=== PATIENT | female | born 1995 | race Hispanic/Latino ===

== ENCOUNTER 2024-04-29 13:45 | Outpatient (RCR) | payer OTHER, SELFPAY ==
--- NOTE | 2024-03-05 14:26 | PT.OIE ---
Current Diagnoses Stress incontinence (female) (male) (03/05/24) Visit Care Team Role Provider Type Heber Gold MD Attending Provider Non-Staff Family Provider Primary Care Provider Referring Provider Specialty: Medical Address: [address], [address] Email: Physical Therapy Initial Evaluation PT-OP-A Visit Information Start: 03/01/24 07:48 Freq: Status: Active Protocol: Document 03/05/24 13:03 LRN (Rec: 03/05/24 14:24 LRN [id number]) Out-Patient Physical Therapy Visit Information Visit Information Visit Type Initial Evaluation Visit Start Time 13:03 Visit Stop Time 13:44 Visit Number 1 Evaluation Information Evaluation Date 03/05/24 Precautions Precautions None PT-OP-B Current Condition Start: 03/01/24 07:48 Freq: Status: Active Protocol: Document 03/05/24 13:03 LRN (Rec: 03/05/24 14:24 LRN [id number]) Current Condition History of Current Condition Onset Date Oct 2023 Current Complaints Urinary leakage with menstration only at night. History of Current Condition Pt reports sudden onset of waking to urine wetness in underwear in bed, when menstrating (wears menstrual cup). Denies urinary leakage during the daytime. Happened once when not menstrating, 3x when menstrating. Pt reports having no urge to urinate when leaking. Pt hesitant for PF assessment due to being on period. Prior Treatments and Tests Urine check - no infection. Treatment Goals Patient/Caregiver Goals Pt goals: Strengthen the PF to stop urinary leakage in bed. 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 Doesn't feel urge to urinate before leakage. Voiding Frequency 15-17x day Nocturia 2 Comments Pelvic Floor Comments Per questionnaire, pt notes occasional pain or symptoms during sexual intercourse; and moderate pain associated to the bladder. PT-OP-J Posture/Palpation/Skin Start: 03/01/24 07:48 Freq: Status: Active Protocol: Document 03/05/24 13:03 LRN (Rec: 03/05/24 14:24 LRN [id number]) Posture Evaluation Position Standing Arm Posture (L) Neutral Pelvis Posture Anteriorly Tilted Weight Distribution Weight Shifted Left Hip Posture (L) Neutral,(R) Neutral Comments Posture Comments Decreased thoracic curvature. PT-OP-K Range of Motion Start: 03/01/24 07:48 Freq: Status: Active Protocol: Document 03/05/24 13:03 LRN (Rec: 03/05/24 14:24 LRN [id number]) Lumbar Spine Range of Motion Lumbar Spine Active Degrees Testing Position Standing Flexion 80 Extension 10 Rotation Left 20 Rotation Right 30 Lateral Flexion Left 8 Lateral Flexion Right 10 ROM Limitations Soft Tissue Tightness Hip Goniometric Range of Motion Hip Right Passive Testing Position Supine Abduction 40 Internal Rotation 40 External Rotation 40 Left Passive Testing Position Supine Abduction 40 Internal Rotation 35 External Rotation 40 PT-OP-M Strength Start: 03/01/24 07:48 Freq: Status: Active Protocol: Document 03/05/24 13:03 LRN (Rec: 03/05/24 14:24 LRN [id number]) Trunk Strength Trunk Manual Muscle Testing Core Stabilization Mild core instability during MMT of LE's, primarily with rotation. Hip Strength Hip Manual Muscle Testing Right Flexion (L2) 4+ Good+ Extension (S1) 3 Fair Abduction 4+ Good+ Adduction 4- Good- External Rotation 3 Fair Internal Rotation 4+ Good+ Comments Hip strength is 5/5 except as indicated above. Left Flexion (L2) 4+ Good+ Extension (S1) 3 Fair Abduction 4 Good Adduction 4 Good External Rotation 3 Fair Internal Rotation 3+ Fair+ Comments Hip strength is 5/5 except as indicated above. PT-OP-Q Treatments Start: 03/01/24 07:48 Freq: Status: Active Protocol: Document 03/05/24 13:03 LRN (Rec: 03/05/24 14:24 LRN [id number]) Therapeutic Exercises Supine Exercises Deep Breathing Reps/Minutes 2' Comments Pt cued to move at lower ribs/ abdomen and keep chest still. Self-Care/Home Management Treatment Education Other Education Discussed results of evaluation, goals, treatments, and plan of care (POC) with pt, discussed attendance/cx/ dns policy; pt agreeable to goals, attendance/cx/dns policy and POC. Activities Self-Care/Home Management Activities Issued & reviewed HEP: Kegel ex's and discussed exercise of Quick Flicks, Long Holds and Aggravators. Issued handout for deep breathing. PT-OP-T Assessment and Plan Start: 03/01/24 07:48 Freq: Status: Active Protocol: Document 03/05/24 13:03 LRN (Rec: 03/05/24 14:24 LRN [id number]) Physical Therapy Assessment Rehab Potential Rehabilitation Potential Good Evaluation Complexity Number of Personal Factors/Comorbidities 0 Number of Body Systems Impaired 1-2 Clinical Presentation at Evaluation Evolving Impairments Impairments ROM,Strength Goals Two Impairment Urinary incontinence Impairment Urinary leakage while in bed, noted first in the morning. Short Term Goal (STG) Pt will be educated in proper deep breathing to minimize urge for urination first in the morning. STG Duration 3 wks-03/26/24 Usp Goal (LTG) Pt will strengthen the PF to stop urinary leakage in bed. LTG Duration 12 wks-05/31/24 One Impairment Pt lacks an independent self care HEP. Short Term Goal (STG) Pt will be independent in hip/ trunk mobility ex's (hip ER/ LIR/hamstrings) to improve symmetry of mobility and core pressure management to reduce urinary leakage. STG Duration 4 wks-04/02/24 Usp Goal (LTG) Pt will be independent in a self care HEP for PF strengthening. LTG Duration 12 wks-05/31/24 Assessment Summary Assessment Pt is a 28 yo female who presents with c/o urinary leakage occuring during menstration while in bed, first in the morning, denying urinary leakage during the day . She also presents with stiffness of the trunk and hips and not able to perform a proper deep breath. The pt will benefit from skilled physical therapy for PF/hip strengthening and flexibility ex's to achieve the above stated goals. I am expecting to be gone for a portion of time this summer; therefore extension of her POC timeframe might be needed. Physical Therapy Plan Frequency and Duration Frequency of Treatment 1x/Week Duration of treatment (weeks) 12 Plan of Care Start Date 03/05/24 Plan of Care End Date 05/31/24 Therapeutic Interventions Therapeutic Interventions Home Exercise Program,Manual Therapy,Neuromuscular Re- education,Self-Care/Home Management,Soft Tissue Mobilization,Therapeutic Exercises Modalities Biofeedback Next Visit Focus/Plan Next Note Type Treatment Note Next Visit Plan Next: Assessment PF if pt off period, and for bowel involvement. ?Bladder diary. Review proper Kegel without use of substitute muscles, reduction of intra-abdominal pressure, proper deep breathing, and proper breathing with transfers and body mechanics. Ther Ex: PF/core/hip strengthening, improve hip Ext /ER/hamstrings and trunk extension/flexion mobility. PLAN: POC: Pt education, Manual therapy. Biofeedback with vaginal sensor. Therapeutic Exercises, Therapeutic Activities, Neuromuscular Reeducation.
--- NOTE | 2024-03-05 14:27 | PT.OPPOC ---
Physical, Occupational & Speech Therapy At [facility] Current Diagnoses Stress incontinence (female) (male) (03/05/24) Visit Care Team Role Provider Type Heber Gold MD Attending Provider Non-Staff Family Provider Primary Care Provider Referring Provider Specialty: Medical Address: [facility], [address] [place] [address], [id number] Email: Plan Of Care PT-OP-T Assessment and Plan Start: 03/01/24 07:48 Freq: Status: Active Protocol: Document 03/05/24 13:03 LRN (Rec: 03/05/24 14:24 LRN [id number]) Physical Therapy Assessment Rehab Potential Rehabilitation Potential Good Evaluation Complexity Number of Personal Factors/Comorbidities 0 Number of Body Systems Impaired 1-2 Clinical Presentation at Evaluation Evolving Impairments Impairments ROM,Strength Goals Two Impairment Urinary incontinence Impairment Urinary leakage while in bed, noted first in the morning. Short Term Goal (STG) Pt will be educated in proper deep breathing to minimize urge for urination first in the morning. STG Duration 3 wks-03/26/24 Mainframe Programmer Analyst Goal (LTG) Pt will strengthen the PF to stop urinary leakage in bed. LTG Duration 12 wks-05/31/24 One Impairment Pt lacks an independent self care HEP. Short Term Goal (STG) Pt will be independent in hip/ trunk mobility ex's (hip ER/ LIR/hamstrings) to improve symmetry of mobility and core pressure management to reduce urinary leakage. STG Duration 4 wks-04/02/24 Mainframe Programmer Analyst Goal (LTG) Pt will be independent in a self care HEP for PF strengthening. LTG Duration 12 wks-05/31/24 Assessment Summary Assessment Pt is a 28 yo female who presents with c/o urinary leakage occuring during menstration while in bed, first in the morning, denying urinary leakage during the day . She also presents with stiffness of the trunk and hips and not able to perform a proper deep breath. The pt will benefit from skilled physical therapy for PF/hip strengthening and flexibility ex's to achieve the above stated goals. I am expecting to be gone for a portion of time this summer; therefore extension of her POC timeframe might be needed. Physical Therapy Plan Frequency and Duration Frequency of Treatment 1x/Week Duration of treatment (weeks) 12 Plan of Care Start Date 03/05/24 Plan of Care End Date 05/31/24 Therapeutic Interventions Therapeutic Interventions Home Exercise Program,Manual Therapy,Neuromuscular Re- education,Self-Care/Home Management,Soft Tissue Mobilization,Therapeutic Exercises Modalities Biofeedback Next Visit Focus/Plan Next Note Type Treatment Note Next Visit Plan Next: Assessment PF if pt off period, and for bowel involvement. ?Bladder diary. Review proper Kegel without use of substitute muscles, reduction of intra-abdominal pressure, proper deep breathing, and proper breathing with transfers and body mechanics. Ther Ex: PF/core/hip strengthening, improve hip Ext /ER/hamstrings and trunk extension/flexion mobility. PLAN: POC: Pt education, Manual therapy. Biofeedback with vaginal sensor. Therapeutic Exercises, Therapeutic Activities, Neuromuscular Reeducation. Plan of Care Dates Plan of Care Start Date 03/05/24 Plan of Care End Date 05/31/24 Electronically Signed by: Sara Green, PT 03/05/24 [id number] If you are in agreement with this Plan of Care, please return a signed and dated copy. I have reviewed this Plan of Care and certify that the skilled therapy services above are required to meet the patient?s needs. Physician Signature Date Printed Name and Credentials Clinical Instructor Signature Printed Name and Credentials
--- NOTE | 2024-03-11 15:50 | PT.OTN ---
Current Diagnoses Stress incontinence (female) (male) (03/11/24) Physical Therapy Treatment Note PT-OP-A Visit Information Start: 03/01/24 07:48 Freq: Status: Active Protocol: Document 03/11/24 14:33 LRN (Rec: 03/11/24 15:45 LRN [id number]) Out-Patient Physical Therapy Visit Information Visit Information Visit Type Treatment Note Visit Start Time 14:33 Visit Stop Time 15:21 Visit Number 2 Evaluation Information Evaluation Date 03/05/24 Precautions Precautions None. No bowel involvement. PT-OP-B Current Condition Start: 03/01/24 07:48 Freq: Status: Active Protocol: Document 03/05/24 13:03 LRN (Rec: 03/05/24 14:24 LRN [id number]) Current Condition History of Current Condition Onset Date Oct 2023 Current Complaints Urinary leakage with menstration only at night. History of Current Condition Pt reports sudden onset of waking to urine wetness in underwear in bed, when menstrating (wears menstrual cup). Denies urinary leakage during the daytime. Happened once when not menstrating, 3x when menstrating. Pt reports having no urge to urinate when leaking. Pt hesitant for PF assessment due to being on period. Prior Treatments and Tests Urine check - no infection. Treatment Goals Patient/Caregiver Goals Pt goals: Strengthen the PF to stop urinary leakage in bed. 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 Started doing abdominal ex 5 months ago but leakage started 1 month ago. PT-OP-I Pelvic Floor Start: 03/01/24 07:48 Freq: Status: Active Protocol: Document 03/11/24 14:33 LRN (Rec: 03/11/24 15:45 LRN [id number]) Pelvic Floor Assessment Bowel Bowel Movement Frequency Daily [place] Stool Chart Comments BM's type 4-5. Pelvic Clock Pelvic Clock Other Tighter on R side and feeling PF contraction. Prolapse Uterine Prolapse Grade 1 Contraction Ability Voluntary Contraction Weak Manual Muscle Testing Left 0 Manual Muscle Testing Right 1 Manual Muscle Testing Anterior 0 Manual Muscle Testing Posterior 0 Muscle Endurance (Seconds) 3 Number of Quick Contractions In 10 2 Seconds Comments Pelvic Floor Comments Pt gave verbal consent for manual assessment & treatment (George, palpating strength of contraction). Pt PF moderately dry. PT-OP-J Posture/Palpation/Skin Start: 03/01/24 07:48 Freq: Status: Active Protocol: Document 03/05/24 13:03 LRN (Rec: 03/05/24 14:24 LRN [id number]) Posture Evaluation Position Standing Arm Posture (L) Neutral Pelvis Posture Anteriorly Tilted Weight Distribution Weight Shifted Left Hip Posture (L) Neutral,(R) Neutral Comments Posture Comments Decreased thoracic curvature. PT-OP-K Range of Motion Start: 03/01/24 07:48 Freq: Status: Active Protocol: Document 03/05/24 13:03 LRN (Rec: 03/05/24 14:24 LRN [id number]) Lumbar Spine Range of Motion Lumbar Spine Active Degrees Testing Position Standing Flexion 80 Extension 10 Rotation Left 20 Rotation Right 30 Lateral Flexion Left 8 Lateral Flexion Right 10 ROM Limitations Soft Tissue Tightness Hip Goniometric Range of Motion Hip Right Passive Testing Position Supine Abduction 40 Internal Rotation 40 External Rotation 40 Left Passive Testing Position Supine Abduction 40 Internal Rotation 35 External Rotation 40 PT-OP-M Strength Start: 03/01/24 07:48 Freq: Status: Active Protocol: Document 03/05/24 13:03 LRN (Rec: 03/05/24 14:24 LRN [id number]) Trunk Strength Trunk Manual Muscle Testing Core Stabilization Mild core instability during MMT of LE's, primarily with rotation. Hip Strength Hip Manual Muscle Testing Right Flexion (L2) 4+ Good+ Extension (S1) 3 Fair Abduction 4+ Good+ Adduction 4- Good- External Rotation 3 Fair Internal Rotation 4+ Good+ Comments Hip strength is 5/5 except as indicated above. Left Flexion (L2) 4+ Good+ Extension (S1) 3 Fair Abduction 4 Good Adduction 4 Good External Rotation 3 Fair Internal Rotation 3+ Fair+ Comments Hip strength is 5/5 except as indicated above. PT-OP-Q Treatments Start: 03/01/24 07:48 Freq: Status: Active Protocol: Document 03/11/24 14:33 LRN (Rec: 03/11/24 15:45 LRN [id number]) Therapeutic Exercises Supine Exercises Hip IR/AD strengthening Supine Exercise Name BKFI w/exhale Reps/Minutes 10 x L, 10x Quentin Hip ER stretch Supine Exercise Name Butterfly position stretch Side left Reps/Minutes 3' Long Hold Kegels Reps/Minutes 12' Quick Kegels Reps/Minutes 8' Deep Breathing Supine Exercise Name Hand on chest and upper ribs Reps/Minutes 8' Comments Cued to slow breathin in / faster initial out. Neuro Re-Education Treatment Movement Re-Education Movement Re-education Activities Coordination training of breath with transfers (sidelie <>sit<>stand). Self-Care/Home Management Treatment Education Patient Education Home Exercise Program Other Education After review of the pt's core strengthening program, discussion was had for breathwork during exercises and recommended pt hold on core strengthening or V-sit leg flex/ext & L-sits from forearm supports and substitute ex's will be issued . Activities Self-Care/Home Management Activities Issued & reviewed HEP: Hip ER /AB stretch (BKFO position), & strengthening for active hip ER/AB. PT-OP-T Assessment and Plan Start: 03/01/24 07:48 Freq: Status: Active Protocol: Document 03/11/24 14:33 LRN (Rec: 03/11/24 15:45 LRN [id number]) Physical Therapy Assessment Goals Two Impairment Urinary incontinence Impairment Urinary leakage while in bed, noted first in the morning. Short Term Goal (STG) Pt will be educated in proper deep breathing to minimize urge for urination first in the morning. 03/11/24: Pt educated in proper Deep breathing. STG Duration 3 wks-03/26/24 progressing (need minimize urge) Halfway Goal (LTG) Pt will strengthen the PF to stop urinary leakage in bed. LTG Duration 12 wks-05/31/24 One Impairment Pt lacks an independent self care HEP. Short Term Goal (STG) Pt will be independent in hip/ trunk mobility ex's (hip ER/ LIR/hamstrings) to improve symmetry of mobility and core pressure management to reduce urinary leakage. 03/11/24: HEP: L Hip ER stretch and Quentin hip ER/AD ( BKFO position) strengthening ( L>R). STG Duration 4 wks-04/02/24 progressing 03/11/24 Halfway Goal (LTG) Pt will be independent in a self care HEP for PF strengthening. 03/05/24 (late entry): HEP: Kegel ex's and discussed exercise of Quick Flicks, Long Holds and Aggravators LTG Duration 12 wks-05/31/24 progressed 03/05/24 (late entry) Assessment Summary Assessment Pt is a 28 yo female who presents with c/o urinary leakage occuring during menstration while in bed, first in the morning, denying leakage daytime; PF is very weak (lateral wall L worse than R) & urterine drop is present. Today, she was trained in deep breathing and was able to perform properly with much education and v. cuing. Transfer with proper breath after training and v. cuing. Vaginal tissues are dry, pt washing with soaps. Physical Therapy Plan Frequency and Duration Frequency of Treatment 1x/Week Duration of treatment (weeks) 12 Plan of Care Start Date 03/05/24 Plan of Care End Date 05/31/24 Next Visit Focus/Plan Next Note Type Treatment Note Next Visit Plan Next: Vemg biofeedback for PF strength. Review Bladder diary for fluid management/ nighttime leakage, review & issue handout for reduction of intra-abdominal pressure with proper deep breathing (check for cystocele/rectocele & uterine drop with valsa maneuver/cough), and proper breathing with transfers and body mechanics. Teach/Review proper Kegel without use of substitute muscles. Ther Ex: PF/core/hip strengthening, improve hip Ext /ER/hamstrings and trunk extension/flexion mobility. PLAN: POC: Pt education, Manual therapy. Biofeedback with vaginal sensor. Therapeutic Exercises, Therapeutic Activities, Neuromuscular Reeducation.
--- NOTE | 2024-03-18 16:24 | PT.OTN ---
Current Diagnoses Stress incontinence (female) (male) (03/18/24) Physical Therapy Treatment Note PT-OP-A Visit Information Start: 03/01/24 07:48 Freq: Status: Active Protocol: Document 03/18/24 13:46 LRN (Rec: 03/18/24 14:32 LRN [id number]) Out-Patient Physical Therapy Visit Information Visit Information Visit Type Treatment Note Visit Start Time 13:46 Visit Stop Time 14:24 Visit Number 315 Evaluation Information Evaluation Date 03/05/24 Precautions Precautions None. No bowel involvement. PT-OP-B Current Condition Start: 03/01/24 07:48 Freq: Status: Active Protocol: Document 03/05/24 13:03 LRN (Rec: 03/05/24 14:24 LRN [id number]) Current Condition History of Current Condition Onset Date Oct 2023 Current Complaints Urinary leakage with menstration only at night. History of Current Condition Pt reports sudden onset of waking to urine wetness in underwear in bed, when menstrating (wears menstrual cup). Denies urinary leakage during the daytime. Happened once when not menstrating, 3x when menstrating. Pt reports having no urge to urinate when leaking. Pt hesitant for PF assessment due to being on period. Prior Treatments and Tests Urine check - no infection. Treatment Goals Patient/Caregiver Goals Pt goals: Strengthen the PF to stop urinary leakage in bed. 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 PT-OP-I Pelvic Floor Start: 03/01/24 07:48 Freq: Status: Active Protocol: Document 03/18/24 13:46 LRN (Rec: 03/18/24 14:32 LRN [id number]) Pelvic Floor Assessment SEMG (uV) Baseline 0.1 Quick Contraction 2.2 10 Second Contraction 3.7 Recruitment Pattern Good Relaxation Fair Holding Poor/Slow Stability of Hold Poor/Slow SEMG Stability of Rest Good Comments Pelvic Floor Comments Legs on Bolster Kegel NOT in isolation of substitute muscles. Positioning: Hands on mid abdomen. 10 reps strength (uV's): avg work 2.2, avg rest 1.0. 20 reps strength (uV's): avg work 2.2, avg rest 1.3. Long Holds: 10 reps strength (uV's): avg work 3.7, avg rest 0.8. PT-OP-J Posture/Palpation/Skin Start: 03/01/24 07:48 Freq: Status: Active Protocol: Document 03/05/24 13:03 LRN (Rec: 03/05/24 14:24 LRN [id number]) Posture Evaluation Position Standing Arm Posture (L) Neutral Pelvis Posture Anteriorly Tilted Weight Distribution Weight Shifted Left Hip Posture (L) Neutral,(R) Neutral Comments Posture Comments Decreased thoracic curvature. PT-OP-K Range of Motion Start: 03/01/24 07:48 Freq: Status: Active Protocol: Document 03/05/24 13:03 LRN (Rec: 03/05/24 14:24 LRN [id number]) Lumbar Spine Range of Motion Lumbar Spine Active Degrees Testing Position Standing Flexion 80 Extension 10 Rotation Left 20 Rotation Right 30 Lateral Flexion Left 8 Lateral Flexion Right 10 ROM Limitations Soft Tissue Tightness Hip Goniometric Range of Motion Hip Right Passive Testing Position Supine Abduction 40 Internal Rotation 40 External Rotation 40 Left Passive Testing Position Supine Abduction 40 Internal Rotation 35 External Rotation 40 PT-OP-M Strength Start: 03/01/24 07:48 Freq: Status: Active Protocol: Document 03/05/24 13:03 LRN (Rec: 03/05/24 14:24 LRN [id number]) Trunk Strength Trunk Manual Muscle Testing Core Stabilization Mild core instability during MMT of LE's, primarily with rotation. Hip Strength Hip Manual Muscle Testing Right Flexion (L2) 4+ Good+ Extension (S1) 3 Fair Abduction 4+ Good+ Adduction 4- Good- External Rotation 3 Fair Internal Rotation 4+ Good+ Comments Hip strength is 5/5 except as indicated above. Left Flexion (L2) 4+ Good+ Extension (S1) 3 Fair Abduction 4 Good Adduction 4 Good External Rotation 3 Fair Internal Rotation 3+ Fair+ Comments Hip strength is 5/5 except as indicated above. PT-OP-Q Treatments Start: 03/01/24 07:48 Freq: Status: Active Protocol: Document 03/18/24 13:46 LRN (Rec: 03/18/24 14:32 LRN [id number]) Therapeutic Exercises Supine Exercises Resting Supine Exercise Name Resting tone per Vemg Reps/Minutes 5' Comments Extra time to don Vaginal electrode Long Hold Kegels Supine Exercise Name Long Hold Vemg Kegels Reps/Minutes 10 SH, 20 SR x 10 Comments Extra time for training of ex' s with Vemg (timing, ect..). Quick Kegels Supine Exercise Name Quick Vemg Kegels Reps/Minutes 2 SH, 4 SR x 20 Comments Extra time for training of ex' s with Vemg (timing, ect..). Self-Care/Home Management Treatment Education Other Education Reviewed Bladder dairy and discussed fluid intake norms and again with exercise sweating, and nighttime voiding frequency norm. Discussed times between voids as every 2 hrs, can be normal. Discussed pt's feeling of being thirsty and recommended bloodwork for blood sugar levels, but pt reported her last bloodwork was 12/2023 and was normal. PT-OP-T Assessment and Plan Start: 03/01/24 07:48 Freq: Status: Active Protocol: Document 03/18/24 13:46 LRN (Rec: 03/18/24 14:32 LRN [id number]) Physical Therapy Assessment Goals Two Impairment Urinary incontinence Impairment Urinary leakage while in bed, noted first in the morning. Short Term Goal (STG) Pt will be educated in proper deep breathing to minimize urge for urination first in the morning. 03/11/24: Pt educated in proper Deep breathing. STG Duration 3 wks-03/26/24 progressing (need minimize urge) Fdc Goal (LTG) Pt will strengthen the PF to stop urinary leakage in bed. 03/18/24: No leaking this past week. LTG Duration 12 wks-05/31/24 progressed? 03/18/24 One Impairment Pt lacks an independent self care HEP. Short Term Goal (STG) Pt will be independent in hip/ trunk mobility ex's (hip ER/ LIR/hamstrings) to improve symmetry of mobility and core pressure management to reduce urinary leakage. 03/11/24: HEP: L Hip ER stretch and Quentin hip ER/AD ( BKFO position) strengthening ( L>R). STG Duration 4 wks-04/02/24 progressing 03/11/24 Net Software Engineer Goal (LTG) Pt will be independent in a self care HEP for PF strengthening. 03/05/24 (late entry): HEP: Kegel ex's and discussed exercise of Quick Flicks, Long Holds and Aggravators LTG Duration 12 wks-05/31/24 progressed 03/05/24 (late entry) Assessment Summary Assessment Pt is a 28 yo female who presents with c/o urinary leakage occuring during menstration while in bed, first in the morning, denying leakage daytime; PF is very weak (lateral wall L worse than R) & uterine drop. Today , per Vemg assesssment, resting tone is very low, weakness is present with quick flicks & long hold Kegels. Pt is drinking over her avg fluid amout of water (pt drinking 150-160 oz's per body wgt of 141#). Pt noting thirst feeling prompting her to drink, allowing for over norm of fluid intake. Physical Therapy Plan Frequency and Duration Frequency of Treatment 1x/Week Duration of treatment (weeks) 12 Plan of Care Start Date 03/05/24 Plan of Care End Date 05/31/24 Other Referrals/Consults Referrals/Consults Recommended Consult for pt high fluid intake at prompting of being thirsty. Next Visit Focus/Plan Next Note Type Treatment Note Next Visit Plan Next: Check wgt. Teach/ Review proper Kegel without use of substitute muscles. Vemg biofeedback for PF strength quick & long holds ( weak lateral wall L worse than R). Review Deep Breathing mechanics, & Bladder diary discussion, & issue handout for reduction of intra- abdominal pressure with proper deep breathing (check for cystocele/rectocele & uterine drop with valsa maneuver/cough ), and proper breathing with transfers and body mechanics. Ther Ex: PF/core/hip strengthening, improve hip Ext /ER/hamstrings and trunk extension/flexion mobility. PLAN: POC: Pt education, Manual therapy. Biofeedback with vaginal sensor. Therapeutic Exercises, Therapeutic Activities, Neuromuscular Reeducation.
--- NOTE | 2024-03-25 14:42 | PT.OTN ---
Current Diagnoses Stress incontinence (female) (male) (03/25/24) Physical Therapy Treatment Note PT-OP-A Visit Information Start: 03/01/24 07:48 Freq: Status: Active Protocol: Document 03/25/24 13:46 LRN (Rec: 03/25/24 14:41 LRN [id number]) Out-Patient Physical Therapy Visit Information Visit Information Visit Type Treatment Note Visit Note wgt 139# Visit Start Time 13:46 Visit Stop Time 14:28 Visit Number 12/24 Evaluation Information Evaluation Date 03/05/24 Precautions Precautions None. No bowel involvement. PT-OP-B Current Condition Start: 03/01/24 07:48 Freq: Status: Active Protocol: Document 03/05/24 13:03 LRN (Rec: 03/05/24 14:24 LRN [id number]) Current Condition History of Current Condition Onset Date Oct 2023 Current Complaints Urinary leakage with menstration only at night. History of Current Condition Pt reports sudden onset of waking to urine wetness in underwear in bed, when menstrating (wears menstrual cup). Denies urinary leakage during the daytime. Happened once when not menstrating, 3x when menstrating. Pt reports having no urge to urinate when leaking. Pt hesitant for PF assessment due to being on period. Prior Treatments and Tests Urine check - no infection. Treatment Goals Patient/Caregiver Goals Pt goals: Strengthen the PF to stop urinary leakage in bed. 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 States she spoke to her corpman who said based on her activity level her amount of fluid intake was normal. PT-OP-I Pelvic Floor Start: 03/01/24 07:48 Freq: Status: Active Protocol: Document 03/25/24 13:46 LRN (Rec: 03/25/24 14:41 LRN [id number]) Pelvic Floor Assessment Comments Pelvic Floor Comments Using Bhavin Protocol 0.1-5 range: 20 reps: Avg work 2.8 , Avg rest 0.9 mV's. PT-OP-J Posture/Palpation/Skin Start: 03/01/24 07:48 Freq: Status: Active Protocol: Document 03/05/24 13:03 LRN (Rec: 03/05/24 14:24 LRN [id number]) Posture Evaluation Position Standing Arm Posture (L) Neutral Pelvis Posture Anteriorly Tilted Weight Distribution Weight Shifted Left Hip Posture (L) Neutral,(R) Neutral Comments Posture Comments Decreased thoracic curvature. PT-OP-K Range of Motion Start: 03/01/24 07:48 Freq: Status: Active Protocol: Document 03/05/24 13:03 LRN (Rec: 03/05/24 14:24 LRN [id number]) Lumbar Spine Range of Motion Lumbar Spine Active Degrees Testing Position Standing Flexion 80 Extension 10 Rotation Left 20 Rotation Right 30 Lateral Flexion Left 8 Lateral Flexion Right 10 ROM Limitations Soft Tissue Tightness Hip Goniometric Range of Motion Hip Right Passive Testing Position Supine Abduction 40 Internal Rotation 40 External Rotation 40 Left Passive Testing Position Supine Abduction 40 Internal Rotation 35 External Rotation 40 PT-OP-M Strength Start: 03/01/24 07:48 Freq: Status: Active Protocol: Document 03/05/24 13:03 LRN (Rec: 03/05/24 14:24 LRN [id number]) Trunk Strength Trunk Manual Muscle Testing Core Stabilization Mild core instability during MMT of LE's, primarily with rotation. Hip Strength Hip Manual Muscle Testing Right Flexion (L2) 4+ Good+ Extension (S1) 3 Fair Abduction 4+ Good+ Adduction 4- Good- External Rotation 3 Fair Internal Rotation 4+ Good+ Comments Hip strength is 5/5 except as indicated above. Left Flexion (L2) 4+ Good+ Extension (S1) 3 Fair Abduction 4 Good Adduction 4 Good External Rotation 3 Fair Internal Rotation 3+ Fair+ Comments Hip strength is 5/5 except as indicated above. PT-OP-Q Treatments Start: 03/01/24 07:48 Freq: Status: Active Protocol: Document 03/25/24 13:46 LRN (Rec: 03/25/24 14:41 LRN [id number]) Therapeutic Exercises Supine Exercises Long Hold Kegels Supine Exercise Name Kegel strengthening with bhavin protocol 0.1-5 intensity. Reps/Minutes 10 sh:10 SR x 1 w/Vemg, and x 10 ex Quick Kegels Supine Exercise Name Biofeedback training. Reps/Minutes 18' Neuro Re-Education Treatment Other Activities Vemg Kegel trng Details Vemg stim Continuous and 5 on: 5 off, intensity 6, for neuro- matt of Kegel Reps/Duration 8' Self-Care/Home Management Treatment Education Other Education Discussed & educated pt in urged deference technique. Activities Self-Care/Home Management Activities Issued handout for urge deference technique. PT-OP-T Assessment and Plan Start: 03/01/24 07:48 Freq: Status: Active Protocol: Document 03/25/24 13:46 LRN (Rec: 03/25/24 14:41 LRN [id number]) Physical Therapy Assessment Goals Two Impairment Urinary incontinence Impairment Urinary leakage while in bed, noted first in the morning. Short Term Goal (STG) Pt will be educated in proper deep breathing to minimize urge for urination first in the morning. 03/11/24: Pt educated in proper Deep breathing. 03/25/24: Pt able to demonstrate proper deep breath . Pt educated today in urge deference technique. STG Duration 3 wks-03/26/24 progressing (need minimize urge) Vineyardist Goal (LTG) Pt will strengthen the PF to stop urinary leakage in bed. 03/18/24: No leaking this past week. LTG Duration 12 wks-05/31/24 progressed? 03/18/24 One Impairment Pt lacks an independent self care HEP. Short Term Goal (STG) Pt will be independent in hip/ trunk mobility ex's (hip ER/ LIR/hamstrings) to improve symmetry of mobility and core pressure management to reduce urinary leakage. 03/11/24: HEP: L Hip ER stretch and Quentin hip ER/AD ( BKFO position) strengthening ( L>R). STG Duration 4 wks-04/02/24 progressing 03/11/24 Assisted Goal (LTG) Pt will be independent in a self care HEP for PF strengthening. 03/05/24 (late entry): HEP: Kegel ex's and discussed exercise of Quick Flicks, Long Holds and Aggravators LTG Duration 12 wks-05/31/24 progressed 03/05/24 (late entry) Assessment Summary Assessment Pt is a 28 yo female who presents with c/o urinary leakage occuring during menstration while in bed, first in the morning, denying leakage daytime; PF is very weak (lateral wall L worse than R) & uterine drop. Today, pt was able to perform an isolated Kegtel and able to identify correct Kegel with use of e-stim for neuro- reeducation. Pt able to x 1, reach max set limit of 5 mV's with contraction, and able to get relaxation after contraction. Physical Therapy Plan Frequency and Duration Frequency of Treatment 1x/Week Duration of treatment (weeks) 12 Plan of Care Start Date 03/05/24 Plan of Care End Date 05/31/24 Next Visit Focus/Plan Next Note Type Treatment Note Next Visit Plan Next: Vemg biofeedback for PF strength quick & long holds (weak lateral wall L worse than R). Review Deep Breathing mechanics, & Bladder diary discussion, & issue handout for reduction of intra -abdominal pressure with proper deep breathing (check for cystocele/rectocele & uterine drop with valsa maneuver/cough), and proper breathing with transfers and body mechanics. Ther Ex: PF/core/hip strengthening, improve hip Ext /ER/hamstrings and trunk extension/flexion mobility. PLAN: POC: Pt education, Manual therapy. Biofeedback with vaginal sensor. Therapeutic Exercises, Therapeutic Activities, Neuromuscular Reeducation.
--- NOTE | 2024-04-01 15:18 | PT.OTN ---
Current Diagnoses Stress incontinence (female) (male) (04/01/24) Physical Therapy Treatment Note PT-OP-A Visit Information Start: 03/01/24 07:48 Freq: Status: Active Protocol: Document 04/01/24 14:00 LRN (Rec: 04/01/24 15:15 LRN [id number]) Out-Patient Physical Therapy Visit Information Visit Information Visit Type Treatment Note Visit Note wgt 139# Visit Start Time 14:00 Visit Stop Time 14:45 Visit Number 01/23 Evaluation Information Evaluation Date 03/05/24 Precautions Precautions None. No bowel involvement. PT-OP-B Current Condition Start: 03/01/24 07:48 Freq: Status: Active Protocol: Document 03/05/24 13:03 LRN (Rec: 03/05/24 14:24 LRN [id number]) Current Condition History of Current Condition Onset Date Oct 2023 Current Complaints Urinary leakage with menstration only at night. History of Current Condition Pt reports sudden onset of waking to urine wetness in underwear in bed, when menstrating (wears menstrual cup). Denies urinary leakage during the daytime. Happened once when not menstrating, 3x when menstrating. Pt reports having no urge to urinate when leaking. Pt hesitant for PF assessment due to being on period. Prior Treatments and Tests Urine check - no infection. Treatment Goals Patient/Caregiver Goals Pt goals: Strengthen the PF to stop urinary leakage in bed. 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 PT-OP-I Pelvic Floor Start: 03/01/24 07:48 Freq: Status: Active Protocol: Document 03/25/24 13:46 LRN (Rec: 03/25/24 14:41 LRN [id number]) Pelvic Floor Assessment Comments Pelvic Floor Comments Using Maliha Protocol 0.1-5 range: 20 reps: Avg work 2.8 , Avg rest 0.9 mV's. PT-OP-J Posture/Palpation/Skin Start: 03/01/24 07:48 Freq: Status: Active Protocol: Document 03/05/24 13:03 LRN (Rec: 03/05/24 14:24 LRN [id number]) Posture Evaluation Position Standing Arm Posture (L) Neutral Pelvis Posture Anteriorly Tilted Weight Distribution Weight Shifted Left Hip Posture (L) Neutral,(R) Neutral Comments Posture Comments Decreased thoracic curvature. PT-OP-K Range of Motion Start: 03/01/24 07:48 Freq: Status: Active Protocol: Document 04/01/24 14:00 LRN (Rec: 04/01/24 15:15 LRN [id number]) Hip Goniometric Range of Motion Hip Right Passive Testing Position Supine Internal Rotation 38 External Rotation 50 Left Passive Testing Position Supine Internal Rotation 40 External Rotation 60 PT-OP-M Strength Start: 03/01/24 07:48 Freq: Status: Active Protocol: Document 03/05/24 13:03 LRN (Rec: 03/05/24 14:24 LRN [id number]) Trunk Strength Trunk Manual Muscle Testing Core Stabilization Mild core instability during MMT of LE's, primarily with rotation. Hip Strength Hip Manual Muscle Testing Right Flexion (L2) 4+ Good+ Extension (S1) 3 Fair Abduction 4+ Good+ Adduction 4- Good- External Rotation 3 Fair Internal Rotation 4+ Good+ Comments Hip strength is 5/5 except as indicated above. Left Flexion (L2) 4+ Good+ Extension (S1) 3 Fair Abduction 4 Good Adduction 4 Good External Rotation 3 Fair Internal Rotation 3+ Fair+ Comments Hip strength is 5/5 except as indicated above. PT-OP-Q Treatments Start: 03/01/24 07:48 Freq: Status: Active Protocol: Document 04/01/24 14:00 LRN (Rec: 04/01/24 15:15 LRN [id number]) Therapeutic Exercises Supine Exercises Hip flexor stretch Supine Exercise Name Fabrice Test Position Side bilateral Reps/Minutes 4' Lateral Hip stretch Side bilateral Reps/Minutes 5' Hip IR/AD strengthening Supine Exercise Name BKFO Side bilateral Reps/Minutes 4' Hip ER stretch Supine Exercise Name Fig 4 stretch, R>L Side bilateral Reps/Minutes 5' Therapeutic Activity Therapeutic Activity ADLs w/breath Name ADL training using breath for core pressure mgmt. Reps/Minutes 8' Transfers w/breath Name Transfer trng w/core pressure mgmt (stand<>sit<>supine) Reps/Minutes 9' Self-Care/Home Management Treatment Education Other Education 6' Pt education in genital hygiene and discussed natural products and what pt uses during menstration. Activities Self-Care/Home Management Activities Handout issued for Genital Hygiene for Women and for Transfers w/breath/Kegel. Issued & reviewed HEP: Stretches: R>L Piriformis ( knee over ankle > KTC), Lateral hip, Fig 4, and bilateral hip flexor stretch. PT-OP-T Assessment and Plan Start: 03/01/24 07:48 Freq: Status: Active Protocol: Document 04/01/24 14:00 LRN (Rec: 04/01/24 15:15 LRN [id number]) Physical Therapy Assessment Goals Two Impairment Urinary incontinence Impairment Urinary leakage while in bed, noted first in the morning. Short Term Goal (STG) Pt will be educated in proper deep breathing to minimize urge for urination first in the morning. 03/11/24: Pt educated in proper Deep breathing. 03/25/24: Pt able to demonstrate proper deep breath . Pt educated today in urge deference technique. 04/01/24: Pt using urge deference technique to make it to bathroom when needed. STG Duration 3 wks-03/26/24 (04/01/24: MET GOAL) Care Home Goal (LTG) Pt will strengthen the PF to stop urinary leakage in bed. 03/18/24: No leaking this past week. 04/01/24: No leakage first in the morning. LTG Duration 12 wks-05/31/24 (04/01/24: MET GOAL) One Impairment Pt lacks an independent self care HEP. Short Term Goal (STG) Pt will be independent in hip/ trunk mobility ex's (hip ER/ LIR/hamstrings) to improve symmetry of mobility and core pressure management to reduce urinary leakage. 03/11/24: HEP: L Hip ER stretch and Quentin hip ER/AD ( BKFO position) strengthening ( L>R). STG Duration 4 wks-04/02/24 progressing 03/11/24 Truck Body Builder Goal (LTG) Pt will be independent in a self care HEP for PF strengthening. 03/05/24 (late entry): HEP: Kegel ex's and discussed exercise of Quick Flicks, Long Holds and Aggravators. 04/01/24: HEP: Stretches: R >L Piriformis (knee over ankle > KTC), Lateral hip, Fig 4, and bilateral hip flexor stretch. LTG Duration 12 wks-05/31/24 progressed 04/01/24 Assessment Summary Assessment Pt is a 28 yo female with resolution of urinary leakage occuring during menstration while in bed, first in the morning, and her denying leakage in daytime. PF initially very weak (lateral wall L worse than R) & uterine drop, to be assessed next visit. Pt symptoms lessening with no c/o urinary leakage for past 2 visits and one episode of ability to control urinary urge w/o leaking. The pt is getting close to DC to HEP, needs to be placed on HEP . Goal 2 achieved. Physical Therapy Plan Frequency and Duration Frequency of Treatment 1x/Week Duration of treatment (weeks) 12 Plan of Care Start Date 03/05/24 Plan of Care End Date 05/31/24 Next Visit Focus/Plan Next Note Type Treatment Note Next Visit Plan Next: DC next or in 2 visits , assess freq of voiding. HEP review and added hip (ext, rot) & core strengthening. Check for cystocele/rectocele & uterine drop with valsa maneuver/cough. Vemg biofeedback for PF strength quick & long holds (add ex for focus on weak lateral wall, L worse than R). Review Deep Breathing mechanics, & Discuss bladder diary (BM & freq of urination), monitor for compliance to reduction of intra-abdominal pressure with breathing and proper breathing with transfers and body mechanics. Ther Ex: address core/hip strengthening protecting against prolapse; improve hip mobility (Ext/ER/hamstrings) and trunk mobility (extension/ flexion). PLAN: POC: Pt education, Manual therapy. Biofeedback with vaginal sensor. Therapeutic Exercises, Therapeutic Activities, Neuromuscular Reeducation.
--- NOTE | 2024-04-29 15:12 | PT.OTN ---
Current Diagnoses Stress incontinence (female) (male) (04/29/24) Physical Therapy Treatment Note PT-OP-A Visit Information Start: 03/01/24 07:48 Freq: Status: Active Protocol: Document 04/29/24 13:37 LRN (Rec: 04/29/24 15:11 LRN [id number]) Out-Patient Physical Therapy Visit Information Visit Information Visit Type Treatment Note Visit Start Time 13:48 Visit Stop Time 14:35 Visit Number 02/23 Evaluation Information Evaluation Date 03/05/24 Precautions Precautions None. No bowel involvement. PT-OP-B Current Condition Start: 03/01/24 07:48 Freq: Status: Active Protocol: Document 03/05/24 13:03 LRN (Rec: 03/05/24 14:24 LRN [id number]) Current Condition History of Current Condition Onset Date Oct 2023 Current Complaints Urinary leakage with menstration only at night. History of Current Condition Pt reports sudden onset of waking to urine wetness in underwear in bed, when menstrating (wears menstrual cup). Denies urinary leakage during the daytime. Happened once when not menstrating, 3x when menstrating. Pt reports having no urge to urinate when leaking. Pt hesitant for PF assessment due to being on period. Prior Treatments and Tests Urine check - no infection. Treatment Goals Patient/Caregiver Goals Pt goals: Strengthen the PF to stop urinary leakage in bed. 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 While at work voiding 6-7x, urination time ~10 secs. Patient Questionnaires Pelvic Pain and Urgency/Frequency Patient Symptom Scale Pelvic Pain Score 10 PT-OP-I Pelvic Floor Start: 03/01/24 07:48 Freq: Status: Active Protocol: Document 03/25/24 13:46 LRN (Rec: 03/25/24 14:41 LRN [id number]) Pelvic Floor Assessment Comments Pelvic Floor Comments Using [place] Protocol 0.1-5 range: 20 reps: Avg work 2.8 , Avg rest 0.9 mV's. PT-OP-J Posture/Palpation/Skin Start: 03/01/24 07:48 Freq: Status: Active Protocol: Document 03/05/24 13:03 LRN (Rec: 03/05/24 14:24 LRN [id number]) Posture Evaluation Position Standing Arm Posture (L) Neutral Pelvis Posture Anteriorly Tilted Weight Distribution Weight Shifted Left Hip Posture (L) Neutral,(R) Neutral Comments Posture Comments Decreased thoracic curvature. PT-OP-K Range of Motion Start: 03/01/24 07:48 Freq: Status: Active Protocol: Document 04/01/24 14:00 LRN (Rec: 04/01/24 15:15 LRN [id number]) Hip Goniometric Range of Motion Hip Right Passive Testing Position Supine Internal Rotation 38 External Rotation 50 Left Passive Testing Position Supine Internal Rotation 40 External Rotation 60 PT-OP-M Strength Start: 03/01/24 07:48 Freq: Status: Active Protocol: Document 04/29/24 13:37 LRN (Rec: 04/29/24 15:12 LRN [id number]) Hip Strength Hip Manual Muscle Testing Right Flexion (L2) 5 Normal Extension (S1) 3 Fair Abduction 5 Normal Adduction 5 Normal Left Flexion (L2) 3 Fair Abduction 5 Normal Adduction 5 Normal PT-OP-Q Treatments Start: 03/01/24 07:48 Freq: Status: Active Protocol: Document 04/29/24 13:37 LRN (Rec: 04/29/24 15:11 LRN [id number]) Therapeutic Exercises Supine Exercises Hip flexor stretch Supine Exercise Name Iliopsoas stretch w/leg off side of plinth. Side bilateral Reps/Minutes 5' Prone Exercises Hip Ext Prone Exercise Name Knee straight and knee flexed Side bilateral Reps/Minutes 10x Comments Cued to exhale w/lift Sidelying Exercises Reverse Clamshell Side bilateral Reps/Minutes 10x each Comments Cued to keep pelvis stable Clamshell Side bilateral Reps/Minutes 10x each Comments Cued to keep pelvis stable Standing Exercises IT band stretch Standing Exercise Name Quentin IT band stretch Side bilateral Reps/Minutes 5' Self-Care/Home Management Treatment Activities Self-Care/Home Management Activities Issued HEP: bilateral hip strengthening of Ext, ER/IR, and hip stretches of Iliopsoas and IT band. PT-OP-T Assessment and Plan Start: 03/01/24 07:48 Freq: Status: Active Protocol: Document 04/29/24 13:37 LRN (Rec: 04/29/24 15:11 LRN [id number]) Physical Therapy Assessment Goals Two Impairment Urinary incontinence Impairment Urinary leakage while in bed, noted first in the morning. Short Term Goal (STG) Pt will be educated in proper deep breathing to minimize urge for urination first in the morning. 03/11/24: Pt educated in proper Deep breathing. 03/25/24: Pt able to demonstrate proper deep breath . Pt educated today in urge deference technique. 04/01/24: Pt using urge deference technique to make it to bathroom when needed. STG Duration 3 wks-03/26/24 (04/01/24: MET GOAL) Compressor Battery Pellets Goal (LTG) Pt will strengthen the PF to stop urinary leakage in bed. 03/18/24: No leaking this past week. 04/01/24: No leakage first in the morning. LTG Duration 12 wks-05/31/24 (04/01/24: MET GOAL) One Impairment Pt lacks an independent self care HEP. Short Term Goal (STG) Pt will be independent in hip/ trunk mobility ex's (hip ER/ LIR/hamstrings) to improve symmetry of mobility and core pressure management to reduce urinary leakage. 03/11/24: HEP: L Hip ER stretch and Quentin hip ER/AD ( BKFO position) strengthening ( L>R). 04/29/24: HEP: Hip Ext (knee straight and flexed 90 deg's) , clamshell and reverse clamshell; Hip stretch: Iliopsoas and front thigh stretch, standing IT Band stretch. STG Duration 4 wks-04/02/24 (04/29/24: MET GOAL) Long-Term Goal (LTG) Pt will be independent in a self care HEP for PF strengthening. 03/05/24 (late entry): HEP: Kegel ex's and discussed exercise of Quick Flicks, Long Holds and Aggravators. 04/01/24: HEP: Stretches: R >L Piriformis (knee over ankle > KTC), Lateral hip, Fig 4, and bilateral hip flexor stretch. 04/29/24: I/S pt in holding Kegel through 10 reps of HEP strengthening ex's. LTG Duration 12 wks-05/31/24 (04/29/24: MET GOAL) Assessment Summary Assessment Pt is a 28 yo female initially with PF weakness, weak lateral wall (L worse than R), urinary leakage with an urge & uterine drop. Her primary goal was to resolve her urinary leakage (PUF score 17) . The pt has not had any incidents of urinary leakage for almost 4 weeks, and has been able to control urinary leakage with the urge deference technique. Her PUF score of 10 indicates 75% likelihood of a +PST, indicating possible interstitial cystitis (IC). Her focus of treatment has been on urinary leakage, but if she begins to have more pelvic pain I would recommend pt be assessed (and possibly treated) for IC. She has issued a HEP of PF and hip ex' s and is ready for discharge to her HEP. Physical Therapy Plan Frequency and Duration Frequency of Treatment 1x/Week Duration of treatment (weeks) 12 Plan of Care Start Date 03/05/24 Plan of Care End Date 05/31/24 Discharge Physical Therapy Discharge Reasons Goals Met Discharge Comments Thank you for your referral.
== END 2024-05-17 13:49 | disposition home or self-care (01) ==
LOC: PHYS 13:45
PROVIDERS: Family Provider Student in an Organized Health Care Education/Training Program; PCP Student in an Organized Health Care Education/Training Program; Referring Provider Student in an Organized Health Care Education/Training Program; Visit Provider Student in an Organized Health Care Education/Training Program
DX: N39.3 Stress incontinence (female) (male) (principal)
CPT/HCPCS: 97110; 97112; 97161; 97530; 97535